=== PATIENT | female | born 1960 | race Caucasian/White ===

== ENCOUNTER 2020-01-02 10:26 | Emergency (ER) | payer SELFPAY ==
[~2020-01-02] VITALS: Ht 165.1 cm; Wt 59.0 kg
[2020-01-02 11:12] VITALS: BP_SYST 166
--- NOTE | 2020-01-02 11:20 | NUR ---
PATIENT TO ER #3
--- NOTE | 2020-01-02 11:35 | NUR ---
PATIENT PRESENTS TO THE ER WITH HX OF CAT SCRATCH TO LEFT LATERAL HAND TODAY AT 1000; NO OTHER TRAUMA, NO OTHER REMARKABLE S/S; FULL DISTAL N/C/R REMAINS INTACT; AREA AROUND PUNCTURE IS SWOLLEN WITH ECCYMOSIS
[2020-01-02 12:08] VITALS: BP_SYST 124
--- NOTE | 2020-01-02 12:13 | NUR ---
REASSESSMENT; WOUND CLEANSED AND DRESSED; PATIENT OTHERWISE UNCHANGED; PREPARATIONS TO DISCHARGE
--- NOTE | 2020-01-02 12:14 | NUR ---
Patient given written and verbal discharge instructions and verbalizes understanding. ER MD discussed with patient the results and treatment provided. Patient in stable condition. ID arm band removed. Rx of AUGMENTIN,TYLENOL given. Patient educated on pain management and to follow up with PMD. Pain Scale . Opportunity for questions provided and answered. Medication side effect fact sheet provided.
== END 2020-01-02 12:08 | disposition home or self-care (01) ==
LOC: SED 10:26
DX: I80.8 Phlebitis and thrombophlebitis of other sites (principal); Z88.5 Allergy status to narcotic agent; W55.03XA Scratched by cat, initial encounter; Y93.89 Activity, other specified; Y92.89 Other specified places as the place of occurrence of the external cause; Y99.8 Other external cause status
CPT/HCPCS: 99283

== ENCOUNTER 2021-03-12 14:28 | Emergency (ER) | payer MEDICAID ==
[~2021-03-12] VITALS: Ht 165.1 cm; Wt 51.7 kg
[2021-03-12 15:08] VITALS: BP_SYST 153
[2021-03-12] MEDS: ONDANSETRON 4 MG ODT TAB PO ONE ×2 (15:35→17:43)
[2021-03-12 15:53] LABS: BASOPHILS % (AUTO) 0.2 % (0.0-2.0); EOSINOPHILS % (AUTO) 0.1 % (0.0-4.0); HEMOGLOBIN 14.2 g/dL (12.0-16.0); LYMPHOCYTES # (AUTO) 0.9 K/uL (1.0-5.5); LYMPHOCYTES % (AUTO) 14.8 % (20.5-51.5); MEAN CORPUSCULAR HEMOGLOBIN 32 pg (27-31); MEAN CORPUSCULAR HGB CONC 34 % (32-36); MEAN CORPUSCULAR VOLUME 93 fL (79.0-98.0); MONOCYTES # (AUTO) 0.2 K/uL (0.0-1.0); MONOCYTES % (AUTO) 3.3 % (1.7-9.3); NEUTROPHILS # (AUTO) 4.7 K/uL (1.8-7.7); NEUTROPHILS % (AUTO) 81.6 % (40.0-70.0); PLATELET COUNT (AUTO) 172 K/uL (130-430); RED CELL DISTRIBUTION WIDTH 13.7 % (9.0-15.0); WHITE BLOOD COUNT (AUTO) 5.8 K/uL (4.8-10.8)
[2021-03-12 16:25] LABS: PROTHROMBIN TIME 10.2 SECS (9.5-12.5)
[2021-03-12 16:31] LABS: ALANINE AMINOTRANSFERASE 22 U/L (12-78); AMYLASE 54 U/L (0-100); ANION GAP 15 (5-15); ASPARTATE AMINOTRANSFERASE 19 U/L (10-37); C-REACTIVE PROTEIN QUANT 0.3 mg/dL (0-0.5); CALCIUM 9.3 mg/dL (8.4-11.0); CHLORIDE 103 mmol/L (98-107); CREATININE 0.62 mg/dL (0.55-1.30); GLUCOSE 131 mg/dL (70-99); LACTATE DEHYDROGENASE 214 U/L (81-234); LIPASE 37 U/L (73-393); POTASSIUM 3.5 mmol/L (3.5-5.1); SODIUM SERUM 137 mmol/L (136-145); TOTAL BILIRUBIN 0.5 mg/dL (0.0-1.0); UREA NITROGEN, BLOOD 14 mg/dL (8-21)
[2021-03-12 16:33] LABS: GFR AFRICAN AMERICAN 127 mL/min (>90)
[2021-03-12] MEDS ORDERED: IBUP-1969 PO (17:17)
[2021-03-12] MEDS ORDERED: ONDA-8 TL (17:17)
[2021-03-12 17:52] VITALS: BP_SYST 153
[2021-03-12 23:24] LABS: ACETONE, SERUM NEGATIVE (NEGATIVE)
== END 2021-03-12 17:52 | disposition home or self-care (01) ==
LOC: SED 14:28
DX: A05.9 Bacterial foodborne intoxication, unspecified (principal); Z88.5 Allergy status to narcotic agent; Z79.899 Other long term (current) drug therapy
CPT/HCPCS: 36415; 74176; 76376; 80053; 82009; 82150; 83605; 83615; 83690; 84484; 85025; 85610; 85730; 86140; 99284; Q0162

== ENCOUNTER 2021-12-11 10:35 | Emergency (ER) | payer MEDICAID ==
[~2021-12-11] VITALS: Ht 162.6 cm; Wt 61.2 kg
[2021-12-11 10:35] VITALS: BP_SYST 165
[~2021-12-11 10:35] MED LIST: IBUP-1969 PO; ONDA-8 TL
--- NOTE | 2021-12-11 10:53 | NUR ---
Pt present to ED with complaint of palpitation and n/v. Pt states that symptoms began this morning when she woke up. Pt acknowledges use of cannabis product the rprevious night. Pt AOx4 GCS [address] Pt in bed 1 in a gown pending ED physician assessment
[2021-12-11] MEDS ORDERED: ONDANSETRON HCL 4 MG/2 ML VIAL IVP ONE (11:00)
[2021-12-11] MEDS ORDERED: LORazepam 2 MG/ML VIAL IVP ONE (11:00)
--- NOTE | 2021-12-11 11:10 | NUR ---
Pt seen by ED physician at the bedside
[2021-12-11 11:18] LABS: BASOPHILS % (AUTO) 0.5 % (0.0-2.0); EOSINOPHILS # (AUTO) 0.1 K/uL (0.0-0.4); EOSINOPHILS % (AUTO) 1.1 % (0.0-4.0); HEMATOCRIT 44.8 % (36-48); HEMOGLOBIN 14.8 g/dL (12.0-16.0); LYMPHOCYTES # (AUTO) 2.3 K/uL (1.0-5.5); LYMPHOCYTES % (AUTO) 30.4 % (20.5-51.5); MEAN CORPUSCULAR HEMOGLOBIN 31 pg (27-31); MEAN CORPUSCULAR HGB CONC 33 % (32-36); MEAN CORPUSCULAR VOLUME 93 fL (79.0-98.0); MONOCYTES # (AUTO) 0.3 K/uL (0.0-1.0); MONOCYTES % (AUTO) 4.1 % (1.7-9.3); NEUTROPHILS # (AUTO) 4.9 K/uL (1.8-7.7); NEUTROPHILS % (AUTO) 63.9 % (40.0-70.0); PLATELET COUNT (AUTO) 230 K/uL (130-430); RED BLOOD CELL COUNT(AUTO) 4.83 MIL/uL (4.2-6.2); RED CELL DISTRIBUTION WIDTH 13.5 % (9.0-15.0); WHITE BLOOD COUNT (AUTO) 7.6 K/uL (4.8-10.8)
[2021-12-11 11:31] LABS: ANION GAP 10 (5-15); CALCIUM 9.4 mg/dL (8.4-11.0); CHLORIDE 106 mmol/L (98-107); CREATININE 0.77 mg/dL (0.55-1.30); GLUCOSE 123 mg/dL (70-99); POTASSIUM 3.7 mmol/L (3.5-5.1); SODIUM SERUM 138 mmol/L (136-145); UREA NITROGEN, BLOOD 14 mg/dL (8-21)
[2021-12-11 11:36] LABS: ALANINE AMINOTRANSFERASE 17 U/L (12-78); ALBUMIN 4.2 g/dL (3.4-4.8); ASPARTATE AMINOTRANSFERASE 20 U/L (10-37); TOTAL BILIRUBIN 0.3 mg/dL (0.0-1.0)
[2021-12-11 11:41] LABS: GFR AFRICAN AMERICAN 98 mL/min (>90)
--- NOTE | 2021-12-11 12:13 | NUR ---
Pt in bed resting in no acute distress at this time. Will continue to monitor pt.
[2021-12-11] MEDS ORDERED: LORA-259 PO (12:17)
[2021-12-11 12:32] VITALS: BP_SYST 120
--- NOTE | 2021-12-11 12:42 | NUR ---
Patient given written and verbal discharge instructions and verbalizes understanding. ER MD discussed with patient the results and treatment provided. Patient in stable condition. ID arm band removed. IV catheter removed intact and dressing applied, no active bleeding. Rx of ativan PO given. Patient educated on pain management and to follow up with PMD. Pain Scale . Opportunity for questions provided and answered. Medication side effect fact sheet provided. Pt transported outof ED via wheelchair. Driven home by
== END 2021-12-11 12:31 | disposition home or self-care (01) ==
LOC: SED 10:35
DX: F45.8 Other somatoform disorders (principal); Z88.5 Allergy status to narcotic agent; Z79.899 Other long term (current) drug therapy
CPT/HCPCS: 36415; 71045; 80053; 83880; 84484; 85025; 93005; 96374; 96375; 99285; J2060; J2405

== ENCOUNTER 2023-03-23 06:07 | Emergency (ER) | payer MEDICAID ==
[~2023-03-23] VITALS: Ht 165.1 cm; Wt 56.7 kg
[~2023-03-23 06:07] MED LIST changes: +LORA-259 PO
[2023-03-23 06:15] VITALS: BP_SYST 154; PULSE 68; RESP 19; TEMP 97; O2SAT 100
[2023-03-23] MEDS ORDERED: HALOPERIDOL LACTATE 5 MG/ML VIAL IM ONE (06:30)
[2023-03-23 06:40] VITALS: BP_SYST 154; PULSE 65; RESP 20; TEMP 97.7; O2SAT 99
[2023-03-23 07:07] LABS: BASOPHILS % (AUTO) 0.4 % (0.0-2.0); EOSINOPHILS # (AUTO) 0.1 K/uL (0.0-0.4); EOSINOPHILS % (AUTO) 1.3 % (0.0-4.0); HEMATOCRIT 44.6 % (36-48); HEMOGLOBIN 14.5 g/dL (12.0-16.0); LYMPHOCYTES # (AUTO) 3.4 K/uL (1.0-5.5); LYMPHOCYTES % (AUTO) 30.3 % (20.5-51.5); MEAN CORPUSCULAR HEMOGLOBIN 31 pg (27-31); MEAN CORPUSCULAR HGB CONC 33 % (32-36); MEAN CORPUSCULAR VOLUME 96 fL (79.0-98.0); MONOCYTES # (AUTO) 0.4 K/uL (0.0-1.0); NEUTROPHILS # (AUTO) 7.2 K/uL (1.8-7.7); PLATELET COUNT (AUTO) 237 K/uL (130-430); RED BLOOD CELL COUNT(AUTO) 4.66 MIL/uL (4.2-6.2); RED CELL DISTRIBUTION WIDTH 13.7 % (9.0-15.0); WHITE BLOOD COUNT (AUTO) 11.3 K/uL (4.8-10.8)
[2023-03-23 07:10] LABS: INR 0.9 (0.8-1.2); PROTHROMBIN TIME 9.8 SECS (9.5-12.5)
[2023-03-23 07:16] LABS: ANION GAP 14 (5-15); CALCIUM 9.6 mg/dL (8.4-11.0); CARBON DIOXIDE 22 mmol/L (23-29); CHLORIDE 108 mmol/L (98-107); CREATININE 0.81 mg/dL (0.55-1.30); GFR AFRICAN AMERICAN 92 mL/min (>90); GLUCOSE 118 mg/dL (74-106); POTASSIUM 3.6 mmol/L (3.5-5.1); SODIUM SERUM 144 mmol/L (136-145); UREA NITROGEN, BLOOD 15 mg/dL (8-21)
[2023-03-23 07:17] LABS: ACETONE, SERUM NEGATIVE (NEGATIVE); GFR NON AFRICAN-AMERICAN 76 mL/min (>90)
[2023-03-23 07:21] LABS: ALANINE AMINOTRANSFERASE 12 U/L (12-78); ALBUMIN 4.4 g/dL (3.4-4.8); AMYLASE 96 U/L (0-100); ASPARTATE AMINOTRANSFERASE 17 U/L (10-37); LIPASE 59 U/L (73-393); TOTAL BILIRUBIN 0.4 mg/dL (0.0-1.0); TOTAL PROTEIN, SERUM 7.7 g/dL (6.4-8.3)
[2023-03-23] MEDS ORDERED: ONDA-8 TL (08:27)
[2023-03-23] MEDS ORDERED: OMEP20CA15 PO (08:27)
== END 2023-03-23 08:51 | disposition home or self-care (01) ==
LOC: SED 06:07
DX: K31.84 Gastroparesis (principal); R11.2 Nausea with vomiting, unspecified; R53.1 Weakness; Z88.5 Allergy status to narcotic agent; Z79.899 Other long term (current) drug therapy
CPT/HCPCS: 99283; 80053; 82009; 82150; 83690; 85025; 85610; 85730; 84484; 36415; 96372; 83605; 82397; J1630